=== PATIENT | female | born 1980 | race African-American/Black ===

== ENCOUNTER 2016-11-11 18:01 | Emergency (ER) | payer SELFPAY ==
[2016-11-11] MEDS ORDERED: HYDROcodone/Acetaminophen 10/325 mg Tablet ONE (18:29)
[2016-11-11] MEDS ORDERED: Phenergan/Codeine 10-6.25mg/5ml UDCUP ONE (18:29)
[2016-11-11] MEDS ORDERED: AMOXicillin 250 MG CAP ONE (18:29)
[2016-11-11] MEDS ORDERED: Naproxen 500 MG TAB ONE (18:30)
--- NOTE | 2016-11-11 18:40 | ERRECORD ---
[facility] EMERGENCY RECORD HPI COUGH (18:28 LLDO) CHIEF COMPLAINT: Patient presents for evaluation of cough, productive of yellow sputum, Patient presents for evaluation of cough and very sore throat started 3 days ago. worse now. HISTORIAN: History provided by patient. LOCATION: Symptoms are generalized. QUALITY: Denies tightness, Denies wheezing, Pain is dull in nature, described as aching, described as BURNING THROAT. TIME COURSE: Gradual onset of symptoms, Symptoms are worsening, are constant. ASSOCIATED WITH: Associated symptoms reviewed, Associated with fever, subjective, Associated with nausea, Associated with upper respiratory infection, No associated wheezing, Associated with weakness. EXACERBATED BY: Patient's condition exacerbated by deep breaths, Patient's condition exacerbated by exercise. RELIEVED BY: Patient's condition relieved by nothing. ROS CONSTITUTIONAL: Historian reports fatigue, reports fever, reports malaise, reports weakness. 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 (18:33 LLDO) ENT: Historian reports sore throat. (18:30 LLDO) CARDIOVASCULAR: Historian reports dyspnea on exertion. (18:30 LLDO) RESPIRATORY: Historian reports cough, reports sputum. described as thick, green, yellow, Historian denies wheezing. (18:30 LLDO) GI: Historian reports anorexia. (18:30 LLDO) GENITOURINARY FEMALE: Negative genitourinary review of systems, Historian denies dysuria, denies frequency, denies urgency. (18:33 LLDO) MUSCULOSKELETAL: Negative musculoskeletal review of systems, Historian denies arthralgias, denies back pain, denies injury, denies myalgias, denies neck pain. (18:33 LLDO) SKIN: Negative skin review of systems, Historian denies cellulitis, denies rash, denies skin changes, denies skin lesions. (18:33 LLDO) NEUROLOGIC: Negative neurologic review of systems, Historian denies confusion, denies dizziness, denies focal weakness, denies mental status changes. (18:33 LLDO) HEMO/LYMPHATIC: Normal hematologic/lymphatic system review, Historian denies abnormal blood clotting, denies gum bleeding, denies petechiae. (18:33 LLDO) ALLERGIC/IMMUNOLOGIC: Normal allergy/immunologic system review, Historian denies eczema, denies environmental allergies, denies food allergies. (18:33 LLDO) &a-1R&a+25V*p+0X*u8741Z*c202B*c15G*c2P*p-0X&a-25V&a+1R Name: Melida Mills : 1980 F36 MedRec: [id number] AcctNum: [id number] Prepared: FriNov 11, 2016 18:44 by Interface Page 1 of 4 pMD [facility] EMERGENCY RECORD PSYCHIATRIC: Negative psychiatric review of systems, Historian denies alcohol abuse, denies anxiety, denies depression, denies drug abuse, denies hallucinations. (18:33 LLDO) NOTES: All systems reviewed, negative except as described above. (18:30 LLDO) PAST MEDICAL HISTORY MEDICAL HISTORY: Notes: VERIFIED 8-15-16, Flu vaccine not up to date, Tetanus immunization up to date, Pneumococcal vaccine not up to date, Past medical history includes history of diabetes, Type II, Past medical history includes pulmonary disease, asthma, Notes: VERIFIED 5-16-16, Flu vaccine not up to date, Tetanus not up to date, Pneumococcal vaccine not up to date, Past medical history includes history of diabetes, Type II, Past medical history includes history of obesity, Past medical history includes pulmonary disease, asthma. (FriNov 11, 2016 18:11 MDEB) FEMALE SURGICAL HISTORY: VERIFIED 8-15-16, RIGHT ANKLE X 3, Surgical history of section, VERIFIED 5-16-16, Surgical history of section, Surgical history of orthopedic surgery, R ANKLE. (FriNov 11, 2016 18:11 MDEB) PSYCHIATRIC HISTORY: Notes: DENIES, Notes: DENIES. (FriNov 11, 2016 18:11 MDEB) SOCIAL HISTORY: Patient denies alcohol use, Patient denies drug use, Patient has no smoking history, Patient denies alcohol use, Patient denies drug use, Patient has no smoking history, Lives at home, with family. (FriNov 11, 2016 18:11 MDEB) NOTES: Nursing records reviewed, Agree with nursing records, Medication list reviewed. (18:33 LLDO) KNOWN ALLERGIES Iodine (Unconfirmed) No Known Drug Allergies (Unconfirmed) No Known Latex Allergy (Unconfirmed) Shellfish Allergy (Unconfirmed): Reaction: Anaphylaxis Shellfish Containing Products (Unconfirmed) CURRENT MEDICATIONS No recorded medications VITAL SIGNS (18:10 MDEB) VITAL SIGNS: BP: 142/94, Pulse: 90, Resp: 20, Temp: 98.3 (Tympanic), Pain: 6, O2 sat: 97 on Room Air, Time: 11/11/2016 18:10. PHYSICAL EXAM CONSTITUTIONAL: Vital Signs Reviewed, Patient afebrile, Pulse normal, Blood pressure normal, Respiratory rate normal, Normal pulse oximetry, Patient appears non toxic, Patient appears, Patient alert and oriented to person, place and time, Nursing notes reviewed. (18:31 LLDO) HEAD: Head exam normal, Head exam included findings of head &a-1R&a+25V*p+0X*x6019L*c202B*c15G*c2P*p-0X&a-25V&a+1R Name: Melida Mills : 1980 F36 MedRec: [id number] AcctNum: [id number] Prepared: FriNov 11, 2016 18:44 by Interface Page 2 of 4 pMD [facility] EMERGENCY RECORD atraumatic, normocephalic. (18:33 LLDO) EYES: Eye exam normal, Eye exam included findings of eyelids normal to inspection, Pupils equally round and reactive to light, Extraocular muscles intact. (18:33 LLDO) ENT: Ear exam normal, Nose exam normal, Pharynx, injected bilaterally, with swelling bilaterally, symmetrical, BRIGHT RED. (18:31 LLDO) NECK: Neck exam included findings of normal range of motion, Trachea midline, Thyroid normal, no meningeal signs, Cervical adenopathy, diffuse, multiple nodes, tender. (18:31 LLDO) RESPIRATORY CHEST: Respiratory exam included findings of no respiratory distress, Rales present, Chest exam included findings of chest movement symmetrical, Chest expansion equal, no tenderness, RALES MOD AND SCATTERED. (18:31 LLDO) CARDIOVASCULAR: Cardiovascular assessment normal, Cardiovascular exam included findings of heart rate regular rate and rhythm, Heart sounds normal. (18:33 LLDO) ABDOMEN FEMALE: Abdominal exam normal, Abdominal exam included findings of abdomen nontender, Bowel sounds normal, no peritoneal signs. (18:33 LLDO) BACK: Back exam normal, Back exam included findings of normal inspection, range of motion normal. (18:33 LLDO) UPPER EXTREMITY: Upper extremity exam normal, Upper extremity exam included findings of inspection normal, Range of motion normal. (18:33 LLDO) LOWER EXTREMITY: Lower extremity exam normal, Lower extremity exam included findings of inspection normal, Range of motion normal. (18:33 LLDO) NEURO: Neuro exam normal, Neuro exam findings include patient oriented to person, place and time, Speech normal, [place] coma scale 15. (18:33 LLDO) SKIN: Skin exam normal, Skin exam included findings of skin warm, dry, and normal in color, no rash. (18:33 LLDO) PSYCHIATRIC: Psychiatric exam normal, Psychiatric exam included findings of patient oriented to person place and time, Normal affect. (18:33 LLDO) MEDICATION ADMINISTRATION SUMMARY Drug Name: amoxicillin, Dose Ordered: 500 mg, Route: Oral, Status: Ordered, Time: 18:20 11/11/2016, Drug Name: Naprosyn, Dose Ordered: 500 mg, Route: Oral, Status: Ordered, Time: 18:20 11/11/2016, Drug Name: [place], Dose Ordered: 10-325 mg, Route: Oral, Status: Ordered, Time: 18:20 11/11/2016, Drug Name: Phenergan-Codeine, Dose Ordered: 10 mL, Route: Oral, Status: Ordered, Time: 18:20 11/11/2016, Detailed record available in Medication Service section. &a-1R&a+25V*p+0X*l3412G*c202B*c15G*c2P*p-0X&a-25V&a+1R Name: Melida Mills : 1980 F36 MedRec: [id number] AcctNum: [id number] Prepared: FriNov 11, 2016 18:44 by Interface Page 3 of 4 pMD [facility] EMERGENCY RECORD PROBLEM LIST No recorded problems DIAGNOSIS (18:22 LLDO) FINAL: PRIMARY: Acute bronchitis, ADDITIONAL: Acute pharyngitis. PRESCRIPTION (18:23 LLDO) amoxicillin: CAPSULE (HARD, SOFT, ETC.) : 500 mg : ORAL : Quantity: 1 Unit: cap(s) Route: ORAL Schedule: 3 times a day Dispense: 30 May substitute. Refills: No Refills . NOTES: No Refills. Phenergan DM: SYRUP : : ORAL : Quantity: 1-2 Unit: teaspoon Route: ORAL Schedule: every 4 hours prn Dispense: 180 Unit: mL May substitute. Refills: No Refills . NOTES: ^s=No Refills No Refills. Tylenol-Codeine #3: TABLET : 300 mg-30 mg : ORAL : Quantity: 1-2 Unit: tab(s) Route: ORAL Schedule: every 4 hours prn Dispense: 24 Unit: tab(s) May substitute. Refills: No Refills . NOTES: ^s=^s=No Refills No Refills No Refills. DISPOSITION PATIENT: Disposition Type: Discharge, Disposition: *Discharge Home. (18:22 LLDO) Patient left the department. (18:43 MDEB) Campbell: LLDO=MD Oriana, Giovanni MDEB=DAVID Zepeda, Alka &a-1R&a+25V*p+0X*h3330T*c202B*c15G*c2P*p-0X&a-25V&a+1R Name: Melida Mills : 1980 F36 MedRec: [id number] AcctNum: [id number] Prepared: FriNov 11, 2016 18:44 by Interface Page 4 of 4 pMD MTDD
--- NOTE | 2016-11-11 18:43 | PICIS ---
[facility] EMERGENCY RECORD TRIAGE (FriNov 11, 2016 18:11 MDEB) PATIENT: NAME: Melida Mills, AGE: 36, GENDER: female, : Fri1980, TIME OF GREET: FriNov 11, 2016 18:02, PREFERRED LANGUAGE: Maldivian, RACE: Black or , ETHNICITY: Not or , FALL RISK: NO, ECODE BILLING MAP: [facility], SSN: [id number], Zip Code: [address], KG WEIGHT: [phone], PHONE: , , , PERSON ID: [id number], PCP: DO Lopes Hillary. (FriNov 11, 2016 18:11 MDEB) TRIAGE NOTES: COUGH, CONGESTION, ST. (FriNov 11, 2016 18:11 MDEB) COMPLAINT: FLU LIKE SYM. (FriNov 11, 2016 18:11 MDEB) ADMISSION: URGENCY: 3 Urgent, ADMISSION SOURCE: Home, TRANSPORT: Walk-in, BED: TRIAGE. (FriNov 11, 2016 18:11 MDEB) PAIN: Patient complains of pain described as, aching, on a scale 0-10 patient rates pain as 6, Location GENERALIZED BODY ACHES. (FriNov 11, 2016 18:11 MDEB) IMMUNIZATIONS: Tetanus not up to date. (FriNov 11, 2016 18:11 MDEB) TRIAGE SCREENING: Patient denies suicidal ideation, Patient denies presence of domestic violence. (FriNov 11, 2016 18:11 MDEB) PROVIDERS: TRIAGE NURSE: Alka Zepeda RN. (FriNov 11, 2016 18:11 MDEB) VITAL SIGNS: BP 142/94, Pulse 90, Resp 20, Temp 98.3, (Tympanic), Pain 6, O2 Sat 97, on Room Air, Time 11/11/2016 18:10. (18:10 MDEB) PREVIOUS VISIT ALLERGIES: Shellfish Containing Products. (FriNov 11, 2016 18:11 MDEB) KNOWN ALLERGIES Iodine (Unconfirmed) No Known Drug Allergies (Unconfirmed) No Known Latex Allergy (Unconfirmed) Shellfish Allergy (Unconfirmed): Reaction: Anaphylaxis Shellfish Containing Products (Unconfirmed) CURRENT MEDICATIONS No recorded medications VITAL SIGNS (18:10 MDEB) VITAL SIGNS: BP: 142/94, Pulse: 90, Resp: 20, Temp: 98.3 (Tympanic), Pain: 6, O2 sat: 97 on Room Air, Time: 11/11/2016 18:10. MEDICATION ADMINISTRATION SUMMARY Drug Name: amoxicillin, Dose Ordered: 500 mg, Route: Oral, Status: Ordered, Time: 18:20 11/11/2016, Drug Name: Naprosyn, Dose Ordered: 500 mg, Route: Oral, Status: Ordered, Time: 18:20 11/11/2016, Drug Name: [place], Dose Ordered: 10-325 mg, Route: Oral, Status: &a-1R&a+25V*p+0X*t0014D*c202B*c15G*c2P*p-0X&a-25V&a+1R Name: Melida Mills : 1980 F36 MedRec: [id number] AcctNum: [id number] Prepared: FriNov 11, 2016 18:44 by Interface Page 1 of 6 pMD [facility] EMERGENCY RECORD Ordered, Time: 18:20 11/11/2016, Drug Name: Phenergan-Codeine, Dose Ordered: 10 mL, Route: Oral, Status: Ordered, Time: 18:20 11/11/2016, Detailed record available in Medication Service section. MEDICATION SERVICE (18:20 DO) amoxicillin: Order: amoxicillin (amoxicillin trihydrate) - Dose: 500 mg : Oral Schedule: Now Ordered by: Giovanni Gastelum MD Entered by: Givoanni Gastelum MD FriNov 11, 2016 18:20 , Acknowledged by: Duane Shoemaker RN FriNov 11, 2016 18:30. Naprosyn: Order: Naprosyn (naproxen) - Dose: 500 mg : Oral Schedule: Now Ordered by: Giovanni Gastelum MD Entered by: Giovanni Gastelum MD FriNov 11, 2016 18:20 , Acknowledged by: Duane Shoemaker RN FriNov 11, 2016 18:30. [place]: Order: [place] (hydrocodone bitartrate/acetaminophen) - Dose: 10-325 mg : Oral Schedule: Now Ordered by: Giovanni Gastelum MD Entered by: Giovanni Gastelum MD FriNov 11, 2016 18:20 , Acknowledged by: Duane Shoemaker RN FriNov 11, 2016 18:30. Phenergan-Codeine: Order: Phenergan-Codeine (promethazine HCl/codeine) - Dose: 10 mL : Oral Schedule: Now Ordered by: Giovanni Gastelum MD Entered by: Giovanni Gastelum MD FriNov 11, 2016 18:20 , Acknowledged by: Duane Shoemaker RN FriNov 11, 2016 18:30. HPI COUGH (18:28 LLDO) CHIEF COMPLAINT: Patient presents for evaluation of cough, productive of yellow sputum, Patient presents for evaluation of cough and very sore throat started 3 days ago. worse now. HISTORIAN: History provided by patient. LOCATION: Symptoms are generalized. QUALITY: Denies tightness, Denies wheezing, Pain is dull in nature, described as aching, described as BURNING THROAT. TIME COURSE: Gradual onset of symptoms, Symptoms are worsening, are constant. ASSOCIATED WITH: Associated symptoms reviewed, Associated with fever, subjective, Associated with nausea, Associated with upper respiratory infection, No associated wheezing, Associated with weakness. EXACERBATED BY: Patient's condition exacerbated by deep breaths, Patient's condition exacerbated by exercise. RELIEVED BY: Patient's condition relieved by nothing. &a-1R&a+25V*p+0X*u8282P*c202B*c15G*c2P*p-0X&a-25V&a+1R Name: Melida Mills : 1980 F36 MedRec: [id number] AcctNum: [id number] Prepared: FriNov 11, 2016 18:44 by Interface Page 2 of 6 pMD [facility] EMERGENCY RECORD ROS CONSTITUTIONAL: Historian reports fatigue, reports fever, reports malaise, reports weakness. 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 (18:33 LLDO) ENT: Historian reports sore throat. (18:30 LLDO) CARDIOVASCULAR: Historian reports dyspnea on exertion. (18:30 LLDO) RESPIRATORY: Historian reports cough, reports sputum. described as thick, green, yellow, Historian denies wheezing. (18:30 LLDO) GI: Historian reports anorexia. (18:30 LLDO) GENITOURINARY FEMALE: Negative genitourinary review of systems, Historian denies dysuria, denies frequency, denies urgency. (18:33 LLDO) MUSCULOSKELETAL: Negative musculoskeletal review of systems, Historian denies arthralgias, denies back pain, denies injury, denies myalgias, denies neck pain. (18:33 LLDO) SKIN: Negative skin review of systems, Historian denies cellulitis, denies rash, denies skin changes, denies skin lesions. (18:33 LLDO) NEUROLOGIC: Negative neurologic review of systems, Historian denies confusion, denies dizziness, denies focal weakness, denies mental status changes. (18:33 LLDO) HEMO/LYMPHATIC: Normal hematologic/lymphatic system review, Historian denies abnormal blood clotting, denies gum bleeding, denies petechiae. (18:33 LLDO) ALLERGIC/IMMUNOLOGIC: Normal allergy/immunologic system review, Historian denies eczema, denies environmental allergies, denies food allergies. (18:33 LLDO) PSYCHIATRIC: Negative psychiatric review of systems, Historian denies alcohol abuse, denies anxiety, denies depression, denies drug abuse, denies hallucinations. (18:33 LLDO) NOTES: All systems reviewed, negative except as described above. (18:30 LLDO) PAST MEDICAL HISTORY MEDICAL HISTORY: Notes: VERIFIED 05-27-16, Flu vaccine not up to date, Tetanus immunization up to date, Pneumococcal vaccine not up to date, Past medical history includes history of diabetes, Type II, Past medical history includes pulmonary disease, asthma, Notes: VERIFIED 02-26-16, Flu vaccine not up to date, Tetanus not up to date, Pneumococcal vaccine not up to date, Past medical history includes history of diabetes, Type II, Past medical history includes history of obesity, Past medical history includes pulmonary disease, asthma. (FriNov 11, 2016 18:11 MDEB) FEMALE SURGICAL HISTORY: VERIFIED 05-27-16, RIGHT ANKLE X 3, Surgical history of section, VERIFIED 02-26-16, Surgical history of section, Surgical history of orthopedic surgery, &a-1R&a+25V*p+0X*r9704Q*c202B*c15G*c2P*p-0X&a-25V&a+1R Name: Melida Mills : 1980 F36 MedRec: [id number] AcctNum: [id number] Prepared: FriNov 11, 2016 18:44 by Interface Page 3 of 6 pMD [facility] EMERGENCY RECORD R ANKLE. (FriNov 11, 2016 18:11 KARELY) PSYCHIATRIC HISTORY: Notes: DENIES, Notes: DENIES. (FriNov 11, 2016 18:11 MDARI) SOCIAL HISTORY: Patient denies alcohol use, Patient denies drug use, Patient has no smoking history, Patient denies alcohol use, Patient denies drug use, Patient has no smoking history, Lives at home, with family. (FriNov 11, 2016 18:11 MDARI) NOTES: Nursing records reviewed, Agree with nursing records, Medication list reviewed. (18:33 LLDO) PHYSICAL EXAM CONSTITUTIONAL: Vital Signs Reviewed, Patient afebrile, Pulse normal, Blood pressure normal, Respiratory rate normal, Normal pulse oximetry, Patient appears non toxic, Patient appears, Patient alert and oriented to person, place and time, Nursing notes reviewed. (18:31 LLDO) HEAD: Head exam normal, Head exam included findings of head atraumatic, normocephalic. (18:33 LLDO) EYES: Eye exam normal, Eye exam included findings of eyelids normal to inspection, Pupils equally round and reactive to light, Extraocular muscles intact. (18:33 LLDO) ENT: Ear exam normal, Nose exam normal, Pharynx, injected bilaterally, with swelling bilaterally, symmetrical, BRIGHT RED. (18:31 LLDO) NECK: Neck exam included findings of normal range of motion, Trachea midline, Thyroid normal, no meningeal signs, Cervical adenopathy, diffuse, multiple nodes, tender. (18:31 LLDO) RESPIRATORY CHEST: Respiratory exam included findings of no respiratory distress, Rales present, Chest exam included findings of chest movement symmetrical, Chest expansion equal, no tenderness, RALES MOD AND SCATTERED. (18:31 LLDO) CARDIOVASCULAR: Cardiovascular assessment normal, Cardiovascular exam included findings of heart rate regular rate and rhythm, Heart sounds normal. (18:33 LLDO) ABDOMEN FEMALE: Abdominal exam normal, Abdominal exam included findings of abdomen nontender, Bowel sounds normal, no peritoneal signs. (18:33 LLDO) BACK: Back exam normal, Back exam included findings of normal inspection, range of motion normal. (18:33 LLDO) UPPER EXTREMITY: Upper extremity exam normal, Upper extremity exam included findings of inspection normal, Range of motion normal. (18:33 LLDO) LOWER EXTREMITY: Lower extremity exam normal, Lower extremity exam included findings of inspection normal, Range of motion normal. (18:33 LLDO) NEURO: Neuro exam normal, Neuro exam findings include patient oriented to person, place and time, Speech normal, [place] coma scale 15. (18:33 LLDO) SKIN: Skin exam normal, Skin exam included findings of skin warm, &a-1R&a+25V*p+0X*n2535Y*c202B*c15G*c2P*p-0X&a-25V&a+1R Name: Melida Mills : 1980 F36 MedRec: [id number] AcctNum: [id number] Prepared: FriNov 11, 2016 18:44 by Interface Page 4 of 6 pMD [facility] EMERGENCY RECORD dry, and normal in color, no rash. (18:33 LLDO) PSYCHIATRIC: Psychiatric exam normal, Psychiatric exam included findings of patient oriented to person place and time, Normal affect. (18:33 LLDO) EVENTS TRANSFER: Triage to Emergency Triage. (FriNov 11, 2016 18:11 MDEB) Emergency Triage to Main ED -H01. (18:13 LLDO) Removed from Emergency Main ED -H01. (18:43 MDEB) PROBLEM LIST No recorded problems DIAGNOSIS (18:22 LLDO) FINAL: PRIMARY: Acute bronchitis, ADDITIONAL: Acute pharyngitis. DISPOSITION PATIENT: Disposition Type: Discharge, Disposition: *Discharge Home. (18:22 LLDO) Patient left the department. (18:43 MDEB) INSTRUCTION (18:24 LLDO) DISCHARGE: BRONCHITIS, ABX TX (ADULT), PHARYNGITIS, STREP (PRESUMED). FOLLOWUP: DO Lopes Hillary, [facility], [address] [place] [id number], , Follow up with Primary Care Physician as needed. SPECIAL: Follow-up with your PCP. PRESCRIPTION (18:23 LLDO) amoxicillin: CAPSULE (HARD, SOFT, ETC.) : 500 mg : ORAL : Quantity: 1 Unit: cap(s) Route: ORAL Schedule: 3 times a day Dispense: 30 May substitute. Refills: No Refills . NOTES: No Refills. Phenergan DM: SYR[place] : : ORAL : Quantity: 1-2 Unit: teaspoon Route: ORAL Schedule: every 4 hours prn Dispense: 180 Unit: mL May substitute. Refills: No Refills . NOTES: ^s=No Refills No Refills. Tylenol-Codeine #3: TABLET : 300 mg-30 mg : ORAL : Quantity: 1-2 Unit: tab(s) Route: ORAL Schedule: every 4 hours prn Dispense: 24 Unit: tab(s) May substitute. Refills: No Refills . NOTES: ^s=^s=No Refills No Refills No Refills. &a-1R&a+25V*p+0X*h4681M*c202B*c15G*c2P*p-0X&a-25V&a+1R Name: Melida Mills : 1980 F36 MedRec: [id number] AcctNum: [id number] Prepared: FriNov 11, 2016 18:44 by Interface Page 5 of 6 pMD [facility] EMERGENCY RECORD ADMIN (18:33 LLDO) DIGITAL SIGNATURE: MD Gastelum Lloyd. Campbell: LLDO=MD Gastelum Lloyd MDEB=DAVID Zepeda, Alka &a-1R&a+25V*p+0X*w2400E*c202B*c15G*c2P*p-0X&a-25V&a+1R Name: Melida Mills : 1980 F36 MedRec: [id number] AcctNum: [id number] Prepared: FriNov 11, 2016 18:44 by Interface Page 6 of 6 pMD [facility] MEDICATION RECONCILIATION You were seen in the Emergency Department on: FriNov 11, 2016 KNOWN ALLERGIES Iodine (Unconfirmed) No Known Drug Allergies (Unconfirmed) No Known Latex Allergy (Unconfirmed) Shellfish Allergy (Unconfirmed): Reaction: Anaphylaxis Shellfish Containing Products (Unconfirmed) Notes from the emergency department Reviewed with family Reviewed with patient PRESCRIPTIONS (3) Printed (3) amoxicillin : CAPSULE (HARD, SOFT, ETC.) : 500 mg : ORAL Quantity: 1, Unit: cap(s), Route: ORAL, Schedule: 3 times a day, Dispense: 30 Phenergan DM : SYR[place] : : ORAL Quantity: 1-2, Unit: teaspoon, Route: ORAL, Schedule: every 4 hours prn, Dispense: 180 Unit: milliliter(s) &a-1R&a+25V*p+0X*p6855K*c202B*c15G*c2P*p-0X&a-25V&a+1R Name: MillsMelida javed : 1980 F36 MedRec: [id number] AcctNum: [id number] Prepared: FriNov 11, 2016 18:44 by Interface pMD SANTOS
== END 2016-11-11 18:42 | disposition home or self-care (01) ==
LOC: MADERS 18:01
DX: J20.9 Acute bronchitis, unspecified (principal); J02.9 Acute pharyngitis, unspecified; E11.9 Type 2 diabetes mellitus without complications; J45.909 Unspecified asthma, uncomplicated
CPT/HCPCS: 99282

== ENCOUNTER 2017-03-19 08:09 | Emergency (ER) | payer SELFPAY ==
[2017-03-19] MEDS ORDERED: Ondansetron ODT 4 MG TAB ONE (08:49)
[2017-03-19 09:55] LABS: Clarity Clear (Clear); Glucose, Urine (Dipstick) Negative (Negative); Leukocyte Negative (Negative); Nitrite Negative (Negative); Pregnancy Test - Urine (BHCG) Negative (Negative); Pregu Control Background? CLEAR/WHITE (CLR/WHITE); Pregu Control Bar Appear? YES (CONTROL BAR); Protein, Urine (Dipstick) Negative (Neg-Trace); pH, Urine 6.5 (5.0-9.0)
[2017-03-19 09:56] LABS: Bacteria/HPF Rare-Few HPF (None Seen); Bilirubin Negative (Negative); Blood, Urine Trace (Negative); RBC/HPF 0-3 HPF (0-3); Squamous Epithelial 0-3 HPF (0-3); Urobilinogen 0.2 mg/dL (0.2-1.0); WBC/HPF 0-3 HPF (0-3)
== END 2017-03-19 10:18 | disposition home or self-care (01) ==
LOC: MADERS 08:09
DX: B34.9 Viral infection, unspecified (principal); E11.9 Type 2 diabetes mellitus without complications; J45.909 Unspecified asthma, uncomplicated; Z79.84 Long term (current) use of oral hypoglycemic drugs
CPT/HCPCS: 36416; 81001; 81025; 87086; 94760; 99284; Q0162

== ENCOUNTER 2017-04-08 09:21 | Outpatient (CLI) | payer MEDICAID ==
--- NOTE | 2017-04-08 12:38 | ULT ---
PELVIC ULTRASOUND INCLUDING TRANSABDOMINAL AND TRANSVAGINAL AND COLOR AND SPECTRAL DOPPLER IMAGING: History: 36-year-old female with menorrhagia with irregular cycles. FINDINGS: The uterus measures 13.1 cm in length and 8.0 x 7.0 cm transversely. The endometrium is heterogeneou s at 1.1 cm in thickness. Multiple small nabothian cysts. Right ovary was not demonstrated. The left ovary measures 2.4 x 2.7 x 2.8 cm. There is a poorly circumscribed probably cyst involving the left ovary with some associated nodularity and some debris, probably a complicated cyst measuring 1.0 x 1.5 x 1.9 cm. No abscess or significant abnormal fluid collection. Vascular duplex demonstrates arterial inflow and venous outflow involving the left ovary. IMPRESSION: Enlarged uterus with a somewhat thickened endometrium. Small poorly circumscribed with some internal nodularity complicated cyst involving the left ovary measuring 1.0 x 1.5 x 1.9 cm as well as some d ebris. Non-visualized right ovary. No abscess or abnormal fluid collection. POS: GILMAR
== END 2017-04-08 09:22 | disposition home or self-care (01) ==
LOC: MADULT 09:21
PROVIDERS: ATTEND Family Medicine
DX: N92.1 Excessive and frequent menstruation with irregular cycle (principal); N83.202 Unspecified ovarian cyst, left side; N85.2 Hypertrophy of uterus
CPT/HCPCS: 76856

== ENCOUNTER 2017-12-15 14:58 | Outpatient (CLI) | payer OTHER ==
[2017-12-15 15:35] LABS: ALT (SGPT) 19 U/L (8-55); AST (SGOT) 19 U/L (5-34); Albumin 3.6 g/dL (3.5-5.0); Alkaline Phosphatase 82 U/L (40-150); Anion Gap 14 mmol/L (10-20); BUN (Urea Nitrogen) 9 mg/dL (7.0-18.7); Bilirubin, Total 0.4 mg/dL (0.2-1.2); Calc. Creatinine Clearance 0 mL/min (70-130); Calcium 8.9 mg/dL (7.8-10.44); Carbon Dioxide 22 mmol/L (22-29); Cardiac Risk 7.2 (Less than 4.5); Chloride 102 mmol/L (98-107); Cholesterol 238 mg/dl (< 200 Desired); Estimated GFR-MDRD Greater than 90; Globulin 3.7 g/dL (2.4-3.5); Glucose 262 mg/dL (70-105); HDL Cholesterol 33 mg/dL (>60 Neg Risk); LDL Cholesterol, Calculated 168 mg/dL; Potassium 3.9 mmol/L (3.5-5.1); Protein, Total 7.3 g/dL (6.0-8.3); Sodium 134 mmol/L (136-145); Triglycerides 184 mg/dL (Less than 150)
[2017-12-15 15:39] LABS: #Basophils 0.1 thou/uL (0.0-0.2); #Eosinphils 0.2 thou/uL (0.0-0.7); #Lymphocytes 2.8 thou/uL (1.20-3.40); #Monocytes 0.5 thou/uL (0.11-0.59); %Basophils 1.8 % (0.0-1.0); %Eosinophils 2.4 % (0.0-10.0); %Lymphocytes 36.7 % (21.0-51.0); %Monocytes 6.2 % (0.0-10.0); %Neutrophils 52.9 % (42.0-75.0); Hemoglobin 13.1 g/dL (12.0-16.0); MDiff Complete? YES; Mean Corpuscular HGB CONC 30.4 g/dL (32.0-36.0); Mean Corpuscular Hemoglobin 24.4 pg (27.0-31.0); Mean Corpuscular Volume 80.2 fl (81.0-99.0); Mean Platelet Volume 7.2 fL (7.4-10.4); Platelet Count 351 thou/uL (130-400); Polychromasia SLIGHT = 2-3 cells (100X) (0-2/hpf); RBC Distribution Width 14.5 % (11.5-14.5); Red Blood Cell (RBC) Count 5.36 mill/uL (4.20-5.40); White Blood Cell (WBC) Count 7.5 thou/uL (4.8-10.8)
[2017-12-15 20:11] LABS: Hemoglobin A1c 12.4 % (4.0-6.0)
== END 2017-12-15 14:59 | disposition home or self-care (01) ==
LOC: MADLABSP 14:58
PROVIDERS: ATTEND Family Medicine
DX: E11.9 Type 2 diabetes mellitus without complications (principal)
CPT/HCPCS: 36415; 80053; 80061; 83036; 85025

== ENCOUNTER 2018-04-28 17:34 | Emergency (ER) | payer OTHER ==
[2018-04-28] MEDS ORDERED: Diazepam 5 MG TAB ONE (18:19)
[2018-04-28] MEDS ORDERED: HYDROcodone/Acetaminophen 10/325 mg Tablet ONE (18:19)
[2018-04-28] MEDS ORDERED: Naproxen 500 MG TAB ONE (18:19)
== END 2018-04-28 18:28 | disposition home or self-care (01) ==
LOC: MADERS 17:34
DX: M62.838 Other muscle spasm (principal); M62.830 Muscle spasm of back; E78.5 Hyperlipidemia, unspecified; E11.9 Type 2 diabetes mellitus without complications; J45.909 Unspecified asthma, uncomplicated; Z79.84 Long term (current) use of oral hypoglycemic drugs
CPT/HCPCS: 99283

== ENCOUNTER 2018-06-07 04:54 | Emergency (ER) | payer OTHER | END 2018-06-07 06:04 | disposition home or self-care (01) | LOC: MADERS 04:54 | DX: J45.901 Unspecified asthma with (acute) exacerbation (principal); E11.9 Type 2 diabetes mellitus without complications; E66.9 Obesity, unspecified; Z79.84 Long term (current) use of oral hypoglycemic drugs; Z79.899 Other long term (current) drug therapy | CPT/HCPCS: J7620 ==

== ENCOUNTER 2018-07-01 07:38 | Emergency (ER) | payer OTHER ==
[2018-07-01] MEDS ORDERED: Ketorolac Tromethamine 60 MG/2 ML VIAL ONE (08:23)
[2018-07-01] MEDS ORDERED: Orphenadrine Citrate 60 MG/2 ML VIAL ONE (08:23)
== END 2018-07-01 08:50 | disposition home or self-care (01) ==
LOC: MADERS 07:38
DX: M54.2 Cervicalgia (principal); M25.512 Pain in left shoulder; E78.5 Hyperlipidemia, unspecified; E11.9 Type 2 diabetes mellitus without complications; E66.9 Obesity, unspecified; J45.909 Unspecified asthma, uncomplicated; Z79.84 Long term (current) use of oral hypoglycemic drugs; Z79.899 Other long term (current) drug therapy
CPT/HCPCS: 96372; 96374; J1885; J2360

== ENCOUNTER 2018-08-05 12:15 | Outpatient (CLI) | payer OTHER | END 2018-08-05 12:16 | disposition home or self-care (01) | LOC: MADEKG 12:15 | PROVIDERS: ATTEND Family Medicine | DX: R00.2 Palpitations (principal); R94.31 Abnormal electrocardiogram [ECG] [EKG] | CPT/HCPCS: 93005; 93010 ==

== ENCOUNTER 2018-12-04 19:54 | Emergency (ER) | payer OTHER ==
[2018-12-04] MEDS ORDERED: Ondansetron ODT 4 MG TAB ONE (22:42)
== END 2018-12-04 22:45 | disposition home or self-care (01) ==
LOC: MADERS 19:54
DX: A08.4 Viral intestinal infection, unspecified (principal); E78.5 Hyperlipidemia, unspecified; E11.9 Type 2 diabetes mellitus without complications; J45.909 Unspecified asthma, uncomplicated
CPT/HCPCS: 99283; Q0162

== ENCOUNTER 2019-04-25 16:37 | Emergency (ER) | payer BC ==
--- NOTE | 2019-04-25 17:46 | RAD ---
XR Knee Rt 4 View STANDARD: 04/25/2019 5:23 PM CLINICAL INDICATION: Injury with pain COMPARISON: None. FINDINGS: Fracture:No fracture. Arthropathy:None of significance. Incidental findings:None of significance. IMPRESSION: 1. No acute osseous abnormality.
[2019-04-25] MEDS ORDERED: Naproxen 500 MG TAB ONE (18:08)
== END 2019-04-25 18:20 | disposition home or self-care (01) ==
LOC: MADERS 16:37
DX: S80.01XA Contusion of right knee, initial encounter (principal); S70.11XA Contusion of right thigh, initial encounter; K02.9 Dental caries, unspecified; E78.5 Hyperlipidemia, unspecified; E11.9 Type 2 diabetes mellitus without complications; J45.909 Unspecified asthma, uncomplicated; Z79.84 Long term (current) use of oral hypoglycemic drugs; Z79.899 Other long term (current) drug therapy; W18.30XA Fall on same level, unspecified, initial encounter

== ENCOUNTER 2019-09-06 12:15 | Outpatient (CLI) | payer BC ==
--- NOTE | 2019-09-06 12:44 | RAD ---
XR Knee Rt 4 View STANDARD History: Chronic pain without trauma Comparison: Knee radiograph April 2019 Findings: No acute fracture. Small joint effusion. Remainder the soft tissues are unremarkable. Impression: No acute osseous abnormality.
--- NOTE | 2019-09-06 14:17 | RAD ---
RIGHT ANKLE 3 VIEWS: DATE: 09/06/19 HISTORY: Chronic pain without trauma. FINDINGS: Internal fixation changes are noted of the lateral malleolus and distal tibia. Calcaneal, plantar, an d Achilles enthesophytes are noted. Arthrosis changes of the tibiotalar joint with some hypertrophic osteophytosis and some joint space loss. No acute fracture or dislocation. IMPRESSION: Postop changes of the distal fibula and tibia. Arthrosis changes of tibiotalar joint. No acute fractu re or dislocation. POS: [facility]
== END 2019-09-06 12:16 | disposition home or self-care (01) ==
LOC: MADRAD 12:15
PROVIDERS: ATTEND Family Medicine
DX: M25.561 Pain in right knee (principal); M25.571 Pain in right ankle and joints of right foot; M19.071 Primary osteoarthritis, right ankle and foot; Z98.890 Other specified postprocedural states

== ENCOUNTER 2019-10-15 13:23 | Emergency (ER) | payer BC ==
[2019-10-15] MEDS ORDERED: Ibuprofen 800 MG TAB ONE (15:04)
[2019-10-15] MEDS ORDERED: Acetaminophen 500 MG TAB ONE (15:04)
--- NOTE | 2019-10-15 15:06 | RAD ---
RIGHT HIP TWO VIEWS: HISTORY: Injury. FINDINGS/IMPRESSION: No fracture, dislocation or other significant acute osseous process. POS: [facility]
== END 2019-10-15 15:08 | disposition home or self-care (01) ==
LOC: MADERS 13:23
DX: S83.91XA Sprain of unspecified site of right knee, initial encounter (principal); S70.01XA Contusion of right hip, initial encounter; E78.5 Hyperlipidemia, unspecified; E11.9 Type 2 diabetes mellitus without complications; J45.909 Unspecified asthma, uncomplicated; Z79.899 Other long term (current) drug therapy; Z79.51 Long term (current) use of inhaled steroids; Z79.84 Long term (current) use of oral hypoglycemic drugs; W01.0XXA Fall on same level from slipping, tripping and stumbling without subsequent striking against object, initial encounter

== ENCOUNTER 2019-12-02 11:25 | Emergency (ER) | payer BC | END 2019-12-02 12:40 | disposition home or self-care (01) | LOC: MADERS 11:25 | DX: J11.1 Influenza due to unidentified influenza virus with other respiratory manifestations (principal); G43.909 Migraine, unspecified, not intractable, without status migrainosus; E66.9 Obesity, unspecified; E78.5 Hyperlipidemia, unspecified; E11.9 Type 2 diabetes mellitus without complications; J45.909 Unspecified asthma, uncomplicated; F32.9 Major depressive disorder, single episode, unspecified; Z79.51 Long term (current) use of inhaled steroids; Z79.84 Long term (current) use of oral hypoglycemic drugs; Z79.899 Other long term (current) drug therapy | CPT/HCPCS: 87804; 99283 ==

== ENCOUNTER 2021-11-05 20:00 | Emergency (ER) | payer BC ==
[2021-11-05] MEDS ORDERED: Ondansetron PF 4 MG/2 ML Vial ONE (20:26)
[2021-11-05] MEDS ORDERED: Ketorolac Tromethamine 30 MG/ML VIAL ONE (20:26)
[2021-11-05] MEDS ORDERED: Sodium Chloride 0.9% 1,000 ML ONE (20:26)
[2021-11-05 22:07] LABS: #Basophils 0.2 thou/uL (0.0-0.2); #Eosinphils 0.2 thou/uL (0.0-0.7); #Lymphocytes 2.9 thou/uL (1.20-3.40); #Monocytes 0.5 thou/uL (0.11-0.59); #Neutrophils 7.3 thou/uL (1.40-6.50); %Basophils 1.6 % (0.0-1.0); %Eosinophils 2.2 % (0.0-10.0); %Lymphocytes 25.9 % (21.0-51.0); %Monocytes 4.8 % (0.0-10.0); %Neutrophils 65.6 % (42.0-75.0); Hemoglobin 13.4 g/dL (12.0-16.0); Hypochromia SLIGHT = 6-15 cells (100X) (0-5/hpf); MDiff Complete? YES; Mean Corpuscular HGB CONC 29.3 g/dL (32.0-36.0); Mean Corpuscular Hemoglobin 22.3 pg (27.0-31.0); Mean Corpuscular Volume 76.1 fL (78.0-98.0); Mean Platelet Volume 6.2 fL (7.4-10.4); Microcytosis MODERATE=15-30 cells (100X) (0-5/hpf); Platelet Count 492 thou/uL (130-400); Polychromasia SLIGHT = 2-3 cells (100X) (0-2/hpf); Red Blood Cell (RBC) Count 6.01 mill/uL (4.20-5.40); White Blood Cell (WBC) Count 11.1 thou/uL (4.8-10.8)
[2021-11-05 22:12] LABS: ALT (SGPT) 13 U/L (8-55); AST (SGOT) 10 U/L (5-34); Albumin 3.7 g/dL (3.5-5.0); Alkaline Phosphatase 86 U/L (40-110); Anion Gap 13 mmol/L (10-20); BUN (Urea Nitrogen) 14 mg/dL (7.0-18.7); Bilirubin, Total 0.3 mg/dL (0.2-1.2); Calc. Creatinine Clearance 0 mL/min (70-130); Calcium 8.9 mg/dL (7.8-10.44); Carbon Dioxide 24 mmol/L (22-29); Chloride 106 mmol/L (98-107); Globulin 3.4 g/dL (2.4-3.5); Glucose 114 mg/dL (70-105); Potassium 4.1 mmol/L (3.5-5.1); Protein, Total 7.1 g/dL (6.0-8.3); Sodium 139 mmol/L (136-145)
[2021-11-05] MEDS ORDERED: Sulfameth/Trimethoprim DS 800-160mg TAB ONE (22:50)
[2021-11-05 23:06] LABS: Bilirubin Negative (Negative); Blood, Urine Trace (Negative); Clarity Clear (Clear); Glucose, Urine (Dipstick) Negative (Negative); Ketone, Urine Negative (Negative); Leukocyte Negative (Negative); Nitrite Negative (Negative); Protein, Urine (Dipstick) Negative (Neg-Trace); Specific Gravity, Urine 1.025 (1.005-1.030); Urobilinogen 0.2 mg/dL (Less than 2); pH, Urine 5.5 (5.0-9.0)
[2021-11-05 23:17] LABS: Bacteria/HPF None Seen HPF (None Seen); RBC/HPF 0-3 HPF (0-3); Squamous Epithelial 0-3 HPF (0-3); Transitional Epithelial 0-3 HPF (None Seen); WBC/HPF 0-3 HPF (0-3)
== END 2021-11-05 23:04 | disposition home or self-care (01) ==
LOC: MADERS 20:00
DX: N20.0 Calculus of kidney (principal); K80.20 Calculus of gallbladder without cholecystitis without obstruction; I10 Essential (primary) hypertension; E11.9 Type 2 diabetes mellitus without complications; J45.909 Unspecified asthma, uncomplicated
CPT/HCPCS: 71045; 74176; 80053; 81003; 81015; 84484; 85025; 86140; 87086; 96374; 96375; J1885; J2405; J7050

== ENCOUNTER 2022-01-04 13:28 | Emergency (ER) | payer BC ==
[2022-01-04 14:04] LABS: Bilirubin Negative (Negative); Blood, Urine Trace (Negative); Glucose, Urine (Dipstick) >=1000 mg/dL (Negative); Ketone, Urine Trace mg/dL (Negative); Leukocyte Negative (Negative); Nitrite Negative (Negative); Protein, Urine (Dipstick) Negative (Neg-Trace); Specific Gravity, Urine 1.025 (1.005-1.030); Urobilinogen 0.2 mg/dL (Less than 2)
[2022-01-04 14:07] LABS: Clarity Hazy (Clear)
[2022-01-04 14:08] LABS: Pregnancy Test - Urine (BHCG) Negative (Negative); Pregu Control Background? CLEAR/WHITE (CLR/WHITE); Pregu Control Bar Appear? YES (CONTROL BAR); Specific Gravity 1.025 (1.002-1.036)
[2022-01-04 14:11] LABS: Bacteria/HPF Rare-Few HPF (None Seen)
[2022-01-04 14:12] LABS: RBC/HPF 0-3 HPF (0-3); WBC/HPF 0-3 HPF (0-3)
== END 2022-01-04 15:25 | disposition short-term general hospital (02) ==
LOC: MADERS 13:28
DX: R10.31 Right lower quadrant pain (principal); M54.50 Low back pain, unspecified; R19.09 Other intra-abdominal and pelvic swelling, mass and lump; G43.909 Migraine, unspecified, not intractable, without status migrainosus; E66.9 Obesity, unspecified; E11.9 Type 2 diabetes mellitus without complications; Z79.84 Long term (current) use of oral hypoglycemic drugs; Z79.899 Other long term (current) drug therapy
CPT/HCPCS: 74176; 81003; 81015; 81025

== ENCOUNTER 2022-08-12 16:11 | Emergency (ER) | payer BC ==
[2022-08-12] MEDS ORDERED: Dexamethasone 10 MG/ML VIAL ONE (19:35)
[2022-08-12] MEDS ORDERED: Ketorolac Tromethamine 30 MG/ML VIAL ONE (20:46)
== END 2022-08-12 21:06 | disposition home or self-care (01) ==
LOC: MADERS 16:11
DX: J06.9 Acute upper respiratory infection, unspecified (principal); J45.901 Unspecified asthma with (acute) exacerbation; N61.0 Mastitis without abscess
CPT/HCPCS: 71045; 87804; 96372; J1100; J1885; J7620

== ENCOUNTER 2023-05-24 12:45 | Emergency (ER) | payer BC, MEDICAID, SELFPAY ==
[2023-05-24] MEDS ORDERED: Ketorolac Tromethamine 30 MG/ML VIAL ONE (13:40)
[2023-05-24] MEDS ORDERED: Lactated Ringer's 1,000 ML ONE (13:40)
[2023-05-24] MEDS ORDERED: Ondansetron PF 4 MG/2 ML Vial ONE (13:40)
[2023-05-24] MEDS ORDERED: Morphine 4 MG/ML VIAL ONE (13:51)
[2023-05-24 13:58] LABS: ALT (SGPT) 8 U/L (8-55); AST (SGOT) 17 U/L (5-34); Albumin 3.5 g/dL (3.5-5.0); Alkaline Phosphatase 73 U/L (40-110); Anion Gap 15 mmol/L (10-20); BUN (Urea Nitrogen) 11 mg/dL (7.0-18.7); Bilirubin, Total 0.3 mg/dL (0.2-1.2); Calc. Creatinine Clearance 0 mL/min (70-130); Calcium 8.7 mg/dL (7.8-10.44); Carbon Dioxide 20 mmol/L (22-29); Chloride 107 mmol/L (98-107); Estimated GFR 104; Globulin 3.9 g/dL (2.4-3.5); Glucose 161 mg/dL (70-105); Protein, Total 7.4 g/dL (6.0-8.3); Sodium 138 mmol/L (136-145)
[2023-05-24 14:04] LABS: Anisocytosis SLIGHT = 6-15 cells (100X) (0-5/hpf); Band 1 % (5-11); Eosinophils 1 % (0-10); Hematocrit 38.8 % (36.0-47.0); Hemoglobin 12.2 g/dL (12.0-16.0); Lymphocytes 11 % (21-51); MDiff Complete? YES; Mean Corpuscular HGB CONC 31.4 g/dL (32.0-36.0); Mean Corpuscular Hemoglobin 23.2 pg (27.0-31.0); Mean Corpuscular Volume 74.1 fl (78.0-98.0); Mean Platelet Volume 8.3 fL (7.4-10.4); Microcytosis SLIGHT = 6-15 cells (100X) (0-5/hpf); Monocytes 3 % (0-10); Neutrophil 67 % (42-75); Platelet Adequacy Comment Appears Increased; Platelet Count 479 10x3/uL (130-400); Polychromasia SLIGHT = 2-3 cells (100X) (0-2/hpf); RBC Distribution Width 16.5 % (11.5-14.5); Reactive Lymphocytes 16 % (0-10); Red Blood Cell (RBC) Count 5.24 mill/uL (4.20-5.40); White Blood Cell (WBC) Count 8.8 10x3/uL (4.8-10.8)
[2023-05-24 14:17] LABS: Lipase Less than 4 U/L (8-78)
[2023-05-25 20:41] LABS: Chlamydia by PCR, Vaginal Swab Not Detected (NotDetected); GC by PCR, Vaginal Swab Not Detected (NotDetected)
== END 2023-05-24 14:17 | disposition short-term general hospital (02) ==
LOC: MADERS 12:45
DX: R10.2 Pelvic and perineal pain (principal); R11.2 Nausea with vomiting, unspecified; I10 Essential (primary) hypertension; E11.9 Type 2 diabetes mellitus without complications; Z79.84 Long term (current) use of oral hypoglycemic drugs; Z79.899 Other long term (current) drug therapy
CPT/HCPCS: 80053; 83605; 83690; 85025; 87480; 87491; 87510; 87591; 87660; 94760; 96361; 96374; 96375; J1885; J2270; J2405; J7120

== ENCOUNTER 2023-07-19 21:41 | Emergency (ER) | payer BC, OTHER ==
[2023-07-19] MEDS ORDERED: Morphine 4 MG/ML VIAL ONE (22:22)
[2023-07-19] MEDS ORDERED: Lactated Ringer's 1,000 ML ONE (22:23)
[2023-07-19] MEDS ORDERED: Acetaminophen 325 MG TAB ONE (22:23)
[2023-07-19] MEDS ORDERED: Ketorolac Tromethamine 30 MG/ML VIAL ONE (22:23)
[2023-07-19] MEDS ORDERED: Ondansetron PF 4 MG/2 ML Vial ONE (22:23)
[2023-07-19 23:32] LABS: Hematocrit 33.2 % (36.0-47.0); Hemoglobin 10.1 g/dL (12.0-16.0); Mean Corpuscular HGB CONC 30.3 g/dL (32.0-36.0); Mean Corpuscular Hemoglobin 23.6 pg (27.0-31.0); Mean Corpuscular Volume 77.7 fl (78.0-98.0); Mean Platelet Volume 7.7 fL (7.4-10.4); Platelet Count 383 10x3/uL (130-400); RBC Distribution Width 16.4 % (11.5-14.5); Red Blood Cell (RBC) Count 4.27 mill/uL (4.20-5.40); White Blood Cell (WBC) Count 10.8 10x3/uL (4.8-10.8)
[2023-07-19 23:44] LABS: ALT (SGPT) 8 U/L (8-55); AST (SGOT) 10 U/L (5-34); Albumin 3.6 g/dL (3.5-5.0); Alkaline Phosphatase 78 U/L (40-110); Anion Gap 13 mmol/L (10-20); BUN (Urea Nitrogen) 13 mg/dL (7.0-18.7); Bilirubin, Total 0.2 mg/dL (0.2-1.2); Calc. Creatinine Clearance 0 mL/min (70-130); Calcium 9.3 mg/dL (7.8-10.44); Carbon Dioxide 27 mmol/L (22-29); Chloride 102 mmol/L (98-107); Estimated GFR 102; Globulin 2.9 g/dL (2.4-3.5); Glucose 119 mg/dL (70-105); Potassium 4.3 mmol/L (3.5-5.1); Protein, Total 6.5 g/dL (6.0-8.3); Sodium 138 mmol/L (136-145)
[2023-07-19 23:49] LABS: Band 1 % (5-11); Eosinophils 2 % (0-10); Hypochromia SLIGHT = 6-15 cells (100X) (0-5/hpf); Lymphocytes 37 % (21-51); Microcytosis SLIGHT = 6-15 cells (100X) (0-5/hpf); Monocytes 5 % (0-10); Neutrophil 54 % (42-75); Platelet Adequacy Comment Appears Adequate
[2023-07-19 23:51] LABS: MDiff Complete? YES
[2023-07-19 23:57] LABS: Bilirubin Negative (Negative); Blood, Urine Trace (Negative); Clarity Slightly Cloudy (Clear); Glucose, Urine (Dipstick) Negative (Negative); Ketone, Urine Negative (Negative); Leukocyte Trace (Negative); Nitrite Positive (Negative); Protein, Urine (Dipstick) Negative (Neg-Trace); Urobilinogen 0.2 mg/dL (Less than 2); pH, Urine 6.5 (5.0-9.0)
[2023-07-20 00:01] LABS: Lipase Less than 4 U/L (8-78)
[2023-07-20 00:07] LABS: Bacteria/HPF 4+ HPF (None Seen); CAUTI Indications for Culture Dysuria,urgency,freq; RBC/HPF 0-3 HPF (0-3)
[2023-07-20 00:08] LABS: Urine Culture Reflex No No
[2023-07-20] MEDS ORDERED: Sodium Chloride 0.9% 100 ML ONE (00:21)
[2023-07-20] MEDS ORDERED: cefTRIAXone (ROCEPHIN) 2 GM VIAL ONE (00:21)
== END 2023-07-20 01:02 | disposition home or self-care (01) ==
LOC: MADERS 21:41
DX: N39.0 Urinary tract infection, site not specified (principal); K59.00 Constipation, unspecified; J06.9 Acute upper respiratory infection, unspecified; G89.18 Other acute postprocedural pain; Z20.822 Contact with and (suspected) exposure to COVID-19; E11.9 Type 2 diabetes mellitus without complications; I10 Essential (primary) hypertension; J45.909 Unspecified asthma, uncomplicated; Z79.51 Long term (current) use of inhaled steroids; Z79.84 Long term (current) use of oral hypoglycemic drugs; Z79.899 Other long term (current) drug therapy
CPT/HCPCS: 71045; 74176; 80053; 81001; 83605; 83690; 85025; 87040; 87077; 87086; 87186; 87635; 87804; 93005; 94760; 96361; 96365; 96375; J0696; J1885; J2270; J2405; J3490; J7120

== ENCOUNTER 2023-09-29 14:03 | Emergency (ER) | payer BC, OTHER ==
[2023-09-29] MEDS ORDERED: Ketorolac Tromethamine 60 MG/2 ML VIAL ONE (15:21)
[2023-09-29 15:23] LABS: Bilirubin Negative (Negative); Blood, Urine Trace (Negative); Clarity Clear (Clear); Glucose, Urine (Dipstick) Negative (Negative); Ketone, Urine Negative (Negative); Leukocyte Negative (Negative); Nitrite Negative (Negative); Protein, Urine (Dipstick) Negative (Neg-Trace); Urobilinogen 0.2 mg/dL (Less than 2)
[2023-09-29 15:29] LABS: Bacteria/HPF Rare-Few HPF (None Seen); CAUTI Indications for Culture Pelvic or flank pain; RBC/HPF 0-3 HPF (0-3); WBC/HPF 0-3 HPF (0-3)
[2023-09-29 15:30] LABS: Urine Culture Reflex No No
== END 2023-09-29 15:58 | disposition home or self-care (01) ==
LOC: MADERS 14:03
DX: G89.18 Other acute postprocedural pain (principal); R10.2 Pelvic and perineal pain; K21.9 Gastro-esophageal reflux disease without esophagitis; E11.9 Type 2 diabetes mellitus without complications; I10 Essential (primary) hypertension; J45.909 Unspecified asthma, uncomplicated; Z79.899 Other long term (current) drug therapy; Z79.84 Long term (current) use of oral hypoglycemic drugs
CPT/HCPCS: 81001; 96372; 99284; J1885

== ENCOUNTER 2024-04-23 20:17 | Emergency (ER) | payer BC, MEDICAID, OTHER ==
[2024-04-23] MEDS ORDERED: Sodium Chloride 0.9% 1,000 ML ONE (21:36)
[2024-04-23] MEDS ORDERED: Aspirin Chewable 81 MG TAB ONE (21:36)
[2024-04-23 22:59] LABS: #Basophils 0.1 thou/uL (0.0-0.2); #Eosinphils 0.2 thou/uL (0.0-0.7); #Lymphocytes 2.5 thou/uL (1.20-3.40); #Monocytes 0.6 thou/uL (0.11-0.59); #Neutrophils 8.7 thou/uL (1.40-6.50); %Basophils 0.6 % (0.0-1.0); %Eosinophils 1.6 % (0.0-10.0); %Lymphocytes 20.7 % (21.0-51.0); %Monocytes 5.2 % (0.0-10.0); %Neutrophils 71.9 % (42.0-75.0); Anisocytosis SLIGHT = 6-15 cells (100X) (0-5/hpf); Hematocrit 43.1 % (36.0-47.0); Hemoglobin 12.3 g/dL (12.0-16.0); MDiff Complete? YES; Mean Corpuscular HGB CONC 28.7 g/dL (32.0-36.0); Mean Corpuscular Hemoglobin 22.7 pg (27.0-31.0); Mean Corpuscular Volume 79.3 fl (78.0-98.0); Mean Platelet Volume 5.8 fL (7.4-10.4); Ovalocytes SLIGHT = 2-5 cells (100X) (0-1/hpf); Platelet Count 387 10x3/uL (130-400); RBC Distribution Width 15.7 % (11.5-14.5); Red Blood Cell (RBC) Count 5.43 mill/uL (4.20-5.40); White Blood Cell (WBC) Count 12.1 10x3/uL (4.8-10.8)
[2024-04-23 23:03] LABS: ALT (SGPT) Less than 7 U/L (8-55); AST (SGOT) 7 U/L (5-34); Albumin 2.9 g/dL (3.5-5.0); Alkaline Phosphatase 78 U/L (40-110); Anion Gap 14 mmol/L (10-20); BUN (Urea Nitrogen) 11 mg/dL (7.0-18.7); Bilirubin, Total 0.2 mg/dL (0.2-1.2); Calc. Creatinine Clearance 0 mL/min (70-130); Calcium 8.6 mg/dL (7.8-10.44); Carbon Dioxide 22 mmol/L (22-29); Chloride 107 mmol/L (98-107); Estimated GFR 109; Globulin 4.1 g/dL (2.4-3.5); Glucose 97 mg/dL (70-105); Lipase 5 U/L (8-78); Potassium 3.8 mmol/L (3.5-5.1); Sodium 139 mmol/L (136-145)
[2024-04-23 23:17] LABS: Troponin I Less than 0.010 ng/mL (< 0.028)
[2024-04-23 23:34] LABS: Bilirubin Negative (Negative); Blood, Urine Trace (Negative); CAUTI Indications for Culture < 2yrs of age; Clarity Clear (Clear); Glucose, Urine (Dipstick) Negative (Negative); Ketone, Urine Negative (Negative); Leukocyte Trace (Negative); Mucous/LPF 1+ LPF (<2+); Nitrite Negative (Negative); Protein, Urine (Dipstick) Negative (Neg-Trace); Specific Gravity, Urine 1.025 (1.005-1.030); Squamous Epithelial 0-3 HPF (0-3); WBC/HPF 0-3 HPF (0-3); pH, Urine 6.5 (5.0-9.0)
[2024-04-23 23:35] LABS: Urine Culture Reflex Yes Yes
== END 2024-04-23 23:47 | disposition home or self-care (01) ==
LOC: MADERS 20:17
DX: R07.9 Chest pain, unspecified (principal); N39.0 Urinary tract infection, site not specified; E11.9 Type 2 diabetes mellitus without complications; J45.909 Unspecified asthma, uncomplicated; I10 Essential (primary) hypertension; Z79.899 Other long term (current) drug therapy
CPT/HCPCS: 36415; 71045; 80053; 81001; 83690; 84484; 85025; 85379; 87086; 93005; J7050

== ENCOUNTER 2024-07-06 18:18 | Emergency (ER) | payer MEDICAID ==
[2024-07-06] MEDS ORDERED: Acetaminophen 325 MG TAB ONE (18:55)
== END 2024-07-06 19:28 | disposition home or self-care (01) ==
LOC: MADERS 18:18
DX: S93.401A Sprain of unspecified ligament of right ankle, initial encounter (principal); E11.9 Type 2 diabetes mellitus without complications; I10 Essential (primary) hypertension; W18.43XA Slipping, tripping and stumbling without falling due to stepping from one level to another, initial encounter
CPT/HCPCS: 99283